=== PATIENT | female | born 1990 ===

== ENCOUNTER 2024-10-18 12:57 | Outpatient (CLI) | payer MEDICAID ==
[2024-10-18] VITALS (22 sets, daily range): BP systolic 90–134; BP diastolic 33–79; PULSE 48–85
== END 2024-10-18 23:59 | disposition home or self-care (01) ==
LOC: CARD DIAG 12:57
PROVIDERS: ATTEND Physician Assistant
DX: R55 Syncope and collapse (principal); R00.2 Palpitations
CPT/HCPCS: 93660